=== PATIENT | male | born 1940 | race Caucasian/White ===

== ENCOUNTER 2018-04-17 15:16 | Inpatient (IN) | payer OTHER ==
[~2018-04-17] VITALS: Ht 167.6 cm; Wt 60.0 kg
[2018-04-17 15:24] VITALS: BP_SYST 131
--- NOTE | 2018-04-17 15:27 | NUR ---
Patient triaged and placed in waiting room. VSS and patient appears in no acute distress at this time. Accompanied by self, awaiting available bed, and MD notified of need for MSE.
--- NOTE | 2018-04-17 15:42 | NUR ---
Pt placed in bed 2
--- NOTE | 2018-04-17 16:00 | NUR ---
PT SITTING UP, COMPLAINED OF ABDOMINAL PAIN SINCE YESTERDAY. HE TOOK TYLENOL BUT DID NOT TAKE THE PAIN AWAY COMPLETELY. "I FEEL THE PAIN IS WORSE TODAY, TOWARD MY RIGHT LOWER SIDE, I THINK IT'S MY APPENDIX OR GALLBLADDER."
--- NOTE | 2018-04-17 16:10 | NUR ---
ER at bedside examining patient.
[2018-04-17] MEDS ORDERED: NACL 0.9% 1,000 ML IV ONE (16:38)
[2018-04-17 17:05] LABS: EOSINOPHILS % (AUTO) 0.1 % (0.0-4.0)
[2018-04-17 17:08] LABS: ANION GAP 7 (5-15); CALCIUM 9.1 mg/dL (8.4-11.0); CHLORIDE 95 mmol/L (98-107); CREATININE 0.91 mg/dL (0.55-1.30); GLUCOSE 106 mg/dL (70-99); POTASSIUM 4.2 mmol/L (3.5-5.1); SODIUM SERUM 131 mmol/L (136-145); UREA NITROGEN, BLOOD 15 mg/dL (8-21)
--- NOTE | 2018-04-17 17:10 | NUR ---
# 22 gauge angiocath placed to LEFT A/C. Use of aseptic technique. Opsite placed over site. Blood return noted. Flushed with 10 cc of normal saline. No evidence of infiltration noted. Patient tolerated well.
[2018-04-17 17:11] LABS: INR 1.1 (0.80-1.20); NEUTROPHILS # (AUTO) 11.3 K/uL (1.8-7.7); PROTHROMBIN TIME 11.2 SECS (9.5-12.5); WHITE BLOOD COUNT (AUTO) 14.4 K/uL (4.8-10.8)
[2018-04-17 17:14] LABS: ALANINE AMINOTRANSFERASE 20 U/L (12-78); ALBUMIN 3.4 g/dL (3.4-4.8); AMYLASE 72 U/L (0-100); ASPARTATE AMINOTRANSFERASE 19 U/L (10-37); LIPASE 82 U/L (73-393); TOTAL BILIRUBIN 0.7 mg/dL (0.0-1.0)
--- NOTE | 2018-04-17 17:14 | NUR ---
IVF NS HUNG ORDERED.
[2018-04-17 17:23] LABS: BASOPHILS # (AUTO) 0.2 K/uL (0.0-0.2); BASOPHILS % (AUTO) 1.1 % (0.0-2.0); HEMATOCRIT 39.1 % (36-54); HEMOGLOBIN 13.3 g/dL (14.0-18.0); LYMPHOCYTES # (AUTO) 1.7 K/uL (1.0-5.5); LYMPHOCYTES % (AUTO) 11.7 % (20.5-51.5); MEAN CORPUSCULAR HEMOGLOBIN 31 pg (27-31); MEAN CORPUSCULAR HGB CONC 34 % (32-36); MEAN CORPUSCULAR VOLUME 92 fL (79.0-98.0); MONOCYTES # (AUTO) 1.2 K/uL (0.0-1.0); MONOCYTES % (AUTO) 8.4 % (1.7-9.3); NEUTROPHILS % (AUTO) 78.7 % (40.0-70.0); PLATELET COUNT (AUTO) 216 K/uL (130-430); RED BLOOD CELL COUNT(AUTO) 4.24 MIL/uL (4.2-6.2); RED CELL DISTRIBUTION WIDTH 11.6 % (9.0-15.0)
[2018-04-17 17:38] LABS: BILIRUBIN,URINE NEGATIVE (NEGATIVE); BLOOD, URINE NEGATIVE (NEGATIVE); CLARITY/URINE CLEAR (CLEAR); COLOR,URINE YELLOW (YELLOW); GLUCOSE,URINE NEGATIVE (NEGATIVE); KETONES,URINE NEGATIVE (NEGATIVE); LEUKOCYTE ESTERASE ,URINE NEGATIVE (NEGATIVE); NITRITE, URINE NEGATIVE (NEGATIVE); PH,URINE 6.5 (5.0-8.0); PROTEIN URINE NEGATIVE (NEGATIVE); UROBILINOGEN,URINE 0.2 (0.2-1.0)
--- NOTE | 2018-04-17 18:35 | NUR ---
TAKEN TO CT SCAN DEPT.
[2018-04-17] MEDS ORDERED: IOHEXOL 100 ML IV ONE (18:45)
--- NOTE | 2018-04-17 18:55 | NUR ---
returned to room 2.
--- NOTE | 2018-04-17 19:28 | NUR ---
ASSUMED CARE FROM LUIS ARMANDO PANDA
[2018-04-17] MEDS ORDERED: PIPERACILLIN/TAZO 3.375 GM in NS 50 ML IV ONE (19:30)
[2018-04-17] MEDS ORDERED: MORPHINE 4 MG/ML INJ. SYRINGE IVP ONE (19:30)
[2018-04-17] MEDS ORDERED: PIPERACILLIN/TAZOBACTAM 3.375 GM/VIAL (ZOSYN) IV ONE (19:58)
--- NOTE | 2018-04-17 21:05 | NUR ---
ADMISSION: The patient, SREEDHAR MORRIS, 77 y/o, M admitted by REESE BEVERLY MD, was given written information regarding hospital policies, unit procedures and contact persons. Valuables were checked and .
[2018-04-17 21:10] VITALS: BP_SYST 125
--- NOTE | 2018-04-17 21:10 | NUR ---
OPENING NOTE PT BROUGHT IN FROM ED VIA GURNEY. RECEIVED ENDORSEMENT REPORT FROM ED NURSE ROMERO AT BEDSIDE. PT'S KARIN PRESENT DURING ADMISSION. PT IS AOX4, PT ABLE TO AMBULATE WITH A STEADY GAIT. PT' S CHEST RISE EVEN AND UNLABORED. NO SOB NOTED. NO DISTRESS NOTED. PT DENIES PAIN AT THIS TIME. PT'S IV CLEAN, DRY AND INTACT. PT'S IV ON LEFT AC 22 G, SL. PT ON RA, TOLERATING WELL. PT'S SKIN WARM, DRY AND INTACT. VITAL SIGNS WNL. PT ORIENTED TO HOSPITAL ROOM, PT VERBALIZED UNDERSTANDING. PT INSTRUCTED HOW TO USE CALL LIGHT AND ROOM PHONE, PT VERBALIZED UNDERSTANDING. PT INSTRUCTED TO CALL FOR ASSISTANCE,ALARM, PT EDUCATED ON SAFETY PT REPORTS. SAFETY MEASURES IN PLACE. CALL LIGHT WITHIN REACH, ROOM PHONE WITHIN REACH, BED IN LOWEST POSITION, SIDE RAILS UP X2, BED BRAKES LOCKED, BEDSIDE TABLE WITHIN REACH. NO OTHER NEEDS AT THIS TIME. WILL CONTINUE TO MONITOR PT AND CONTINUE POC.
[2018-04-17 21:17] VITALS: BP_SYST 125
--- NOTE | 2018-04-17 21:35 | NUR ---
DR. BEVERLY AT BEDSIDE
[2018-04-17] MEDS: D5/0.45 NS 1,000 ML IV SCH (21:57)
[2018-04-17] MEDS ORDERED: ONDANSETRON HCL 4 MG/2 ML VIAL IVP PRN (22:00)
--- NOTE | 2018-04-17 22:10 | NUR ---
DR. TOMAS CALLED BACK DR. TOMAS CALLED TO REPORT HE WAS ON HIS WAY, SX SCHEDULED FOR TONIGHT, LAPAROSCOPIC APPENDECTOMY WITH POSSIBLE OPEN APPENDECTOMY. NOTIFIED OF PT'S HX : OPEN HEART SX (2000), A FEW STENTS ACCORDING TO PT IN THE PAST AND ANGIOPLASTY. PT NOT A GOOD HISTORIAN, INFORMED MD PT STATED HOME MEDS INCLUDE METOPROLOL, ZOCOR, PLAVIX AND BABY ASPIRIN. TRANSFERRED TO COMMUNICATIONS CONTROLLER TO NOTIFY OF SX.
--- NOTE | 2018-04-17 22:30 | NUR ---
CONSULTATION PAGED/CALLED Reason for Consultation: CARDIAC CLEARANCE Person Who was Notified: DELMY Consulting Physician: DR. LOGAN Customer Service Technician Specialty: CARDIO Ordering Physician: DR. BEVERLY
--- NOTE | 2018-04-17 22:56 | NUR ---
Paged Dr. Vega dialed [phone], s/w Callie.
--- NOTE | 2018-04-17 23:34 | NUR ---
SX CANCELLED DR. TOMAS ARRIVED ON THE FLOOR AT 2245, MD SPOKE TO PT 2250, CONSENTS SIGNED AT [address] BHAGAT ARRIVED AT 2300 AND UPSET PT WAS NOT PREPARED FOR SX. PT NEEDED CARDIAC CLEARANCE FROM DR. BALDERAS. DR. BALDERAS CALLED THE FLOOR AT 2257 TO INFORM MD TO CALL ID NEEDED. DR. BALDERAS NEVER GAVE CARDIAC CLEARANCE. DR. BHAGAT SPOKE TO PT AT 2301 AND ASSESSED PT, PT INFORMED MD OF HX AND MEDICATIONS. MD INFORMED SX, PT NEEDED CARDIAC CLEARANCE. DR. BHAGAT SPOKE TO DR. BALDERAS AT 2305, SX TO BE CANCELLED AND DR. BALDERAS TO ASSESS PT PRIOR TO SX. DR. BALDERAS AND DR. BEVERLY PAGED AND INFORMED OF SX CANCELLATION.
--- NOTE | 2018-04-17 23:34 | NUR ---
Paged Dr. Patel dialed [phone], s/w Jorden
--- NOTE | 2018-04-17 23:43 | NUR ---
DR. BALDERAS NOTIFIED SX CANCELLED, DR. BALDERAS STATED HE WOULD COME TO SEE PT 04/18/18
--- NOTE | 2018-04-17 23:56 | NUR ---
DR. BEVERLY NOTIFIED SX CANCELLED, WILL VISIT PT 04/18/18, EKG ORDERED, NPO DIET ORDER TO BE CONTINUED, NO OTHER CHANGES
[2018-04-18] MEDS ORDERED: PIPERACILLIN/TAZOBACTAM 3.375 GM/VIAL (ZOSYN) IV ONE (00:05)
--- NOTE | 2018-04-18 02:43 | NUR ---
RN ROUNDS RESTING IN BED WITH EYES OPEN. CHEST RISE EVEN AND UNLABORED. NO SOB NOTED. NO DISTRESS NOTED. PT DENIES PAIN AT THIS TIME. PT'S IV CLEAN, DRY AND INTACT. PT'S IV INFUSING WELL. SAFETY MEASURES IN PLACE. CALL LIGHT WITHIN REACH, ROOM PHONE WITHIN REACH, BED IN LOWEST POSITION, SIDE RAILS UP X2, BED BRAKES LOCKED, BEDSIDE TABLE WITHIN REACH. NO OTHER NEEDS AT THIS TIME. WILL CONTINUE TO MONITOR PT AND CONTINUE POC.
[2018-04-18] MEDS: PIPERACILLIN/TAZO 3.375 GM in NS 50 ML IV SCH ×4 (03:52→20:53)
--- NOTE | 2018-04-18 04:00 | NUR ---
RN ROUNDS PT RESTING IN BED WITH EYES CLOSED. CHEST RISE EVEN AND UNLABORED. NO SOB NOTED. NO DISTRESS NOTED. PT EASILY AWAKEN. PT DENIES PAIN AT THIS TIME. IVF INFUSING WELL. SCHEDULED ZOSYN ADMINISTERED SCHEDULED. NO OTHER NEEDS AT THIS TIME. SAFETY MEASURES IN PLACE. CALL LIGHT WITHIN REACH, ROOM PHONE WITHIN REACH, BED IN LOWEST POSITION, SIDE RAILS UP X2, BED BRAKES LOCKED, BEDSIDE TABLE WITHIN REACH. WILL CONTINUE TO MONITOR PT AND CONTINUE POC.
[2018-04-18] MEDS ORDERED: SIMV10TA2 PO (04:46)
[2018-04-18] MEDS ORDERED: ASA81 PO (04:46)
[2018-04-18] MEDS ORDERED: METO25TA6 PO (04:46)
[2018-04-18] MEDS ORDERED: CLOP300T2 PO (04:46)
[2018-04-18 06:24] LABS: BASOPHILS % (AUTO) 0.4 % (0.0-2.0); EOSINOPHILS % (AUTO) 0.3 % (0.0-4.0); HEMATOCRIT 37.8 % (36-54); HEMOGLOBIN 12.6 g/dL (14.0-18.0); LYMPHOCYTES # (AUTO) 1.7 K/uL (1.0-5.5); LYMPHOCYTES % (AUTO) 15.7 % (20.5-51.5); MEAN CORPUSCULAR HEMOGLOBIN 31 pg (27-31); MEAN CORPUSCULAR HGB CONC 33 % (32-36); MEAN CORPUSCULAR VOLUME 92 fL (79.0-98.0); MONOCYTES # (AUTO) 0.8 K/uL (0.0-1.0); MONOCYTES % (AUTO) 7.1 % (1.7-9.3); NEUTROPHILS # (AUTO) 8.2 K/uL (1.8-7.7); NEUTROPHILS % (AUTO) 76.5 % (40.0-70.0); PLATELET COUNT (AUTO) 217 K/uL (130-430); RED BLOOD CELL COUNT(AUTO) 4.09 MIL/uL (4.2-6.2); WHITE BLOOD COUNT (AUTO) 10.8 K/uL (4.8-10.8)
[2018-04-18] MEDS: PANTOPRAZOLE SODIUM 40 MG/VIAL (PROTONIX) IVP SCH (06:37)
[2018-04-18] MEDS: MORPHINE 4 MG/ML INJ. SYRINGE IVP PRN ×2 (06:48→22:18)
--- NOTE | 2018-04-18 06:54 | NUR ---
RN ROUNDS PT RESTING IN BED WITH EYES OPEN. CHEST RISE EVEN AND UNLABORED. NO SOB NOTED. NO DISTRESS NOTED. IVF INFUSING WELL. PT'S SCHEDULED PROTONIX ADMINISTERED ORDERED. PT TOLERATED WELL. PT REPORTED 7/10 GENERALIZED SHARP PAIN, PRN MORPHINE 4 [facility] IVP ADMINISTERED ORDERED FOR SEVERE PAIN, PT TOLERATED WELL. WILL MONITOR MEDICATION EFFECTIVENESS. SAFETY MEASURES IN PLACE. CALL LIGHT WITHIN REACH, ROOM PHONE WITHIN REACH, BED IN LOWEST POSITION, SIDE RAILS UP X2, BED BRAKES LOCKED, BEDSIDE TABLE WITHIN REACH. NO OTHER NEEDS AT THIS TIME. WILL CONTINUE TO MONITOR PT AND CONTINUE POC.
[2018-04-18 07:03] LABS: ALANINE AMINOTRANSFERASE 21 U/L (12-78); ALBUMIN 3.1 g/dL (3.4-4.8); ANION GAP 8 (5-15); ASPARTATE AMINOTRANSFERASE 15 U/L (10-37); CALCIUM 9.3 mg/dL (8.4-11.0); CHLORIDE 101 mmol/L (98-107); CREATININE 0.99 mg/dL (0.55-1.30); GLUCOSE 113 mg/dL (70-99); POTASSIUM 4.2 mmol/L (3.5-5.1); SODIUM SERUM 138 mmol/L (136-145); TOTAL BILIRUBIN 0.9 mg/dL (0.0-1.0); UREA NITROGEN, BLOOD 12 mg/dL (8-21)
--- NOTE | 2018-04-18 07:40 | NUR ---
CLOSING NOTE ENDORSED PT REPORT TO DAY SHIFT NURSE FLORY AT BEDSIDE. PT RESTING IN BED WITH EYES OPEN. CHEST RISE EVEN AND UNLABORED. NO SOB NOTED. NO DISTRESS NOTED. IVF INFUSING WELL. PT DENIED PAIN AT THIS TIME. ALL SCHEDULED MEDICATIONS ADMINISTERED ORDERED, PT TOLERATED WELL. ALL NEEDS MET THROUGHOUT SHIFT. NO OTHER NEEDS AT THIS TIME. SAFETY MEASURES IN PLACE. WILL CONTINUE TO MONITOR PT AND CONTINUE POC.
[2018-04-18 08:03] VITALS: BP_SYST 125
--- NOTE | 2018-04-18 08:25 | NUR ---
OPENING NOTE: RECEIVED REPORT FROM NIGHT NURSE. PATIENT IS RESTING COMFORTABLY IN BED. NO S/S OF DISTRESS OR SOB. VITAL SIGNS WNL, ASSESSMENT COMPLETE. PATIENT IS ALERT AND ORIENTED, ABLE TO EXPRESS NEEDS, AND ASK FOR ASSISTANCE. IV IS PATENT AND INFUSING. CALL LIGHT IN REACH, BED IN LOWEST POSITION, AND WILL CONTINUE TO MONITOR.
--- NOTE | 2018-04-18 08:31 | NUR ---
GEN SURGEON DR Gregory TOMAS WAS PAGED RE: CLARIFICATION OF NPO ORDERS.
--- NOTE | 2018-04-18 08:34 | NUR ---
DR. TOMAS SPOKE WITH MD REGARDING DIET. PATIENT STATED THAT HE WAS REALLY HUNGRY AND WANTED TO EAT. DR. TOMAS OKAY'D CLEAR LIQUID DIET WITH CAREFUL MONITORING.
--- NOTE | 2018-04-18 10:14 | NUR ---
RN ROUNDS PATIENT IS RESTING COMFORTABLY IN BED. NO S/S OF DISTRESS OR SOB. PATIENT IS ALERT AND ORIENTED. NO NEEDS EXPRESSED AT THIS TIME. CALL LIGHT IN REACH, BED IN LOWEST POSITION, AND WILL CONTINUE TO MONITOR.
[2018-04-18 12:00] VITALS: BP_SYST 118
--- NOTE | 2018-04-18 12:00 | NUR ---
RN ROUNDS PATIENT IS RESTING COMFORTABLY IN BED. NO S/S OF DISTRESS OR SOB. PATIENT IS ALERT AND ORIENTED. FAMILY IS AT BEDSIDE. CALL LIGHT IN REACH, BED IN LOWEST POSITION, AND WILL CONTINUE TO MONITOR.
[2018-04-18] MEDS: D5/0.45 NS 1,000 ML IV SCH (12:18)
--- NOTE | 2018-04-18 14:00 | NUR ---
RN ROUNDS PATIENT IS RESTING COMFORTABLY IN BED. NO S/S OF DISTRESS OR SOB. PATIENT IS AWAKE AND ALERT. FAMILY IS AT BEDSIDE. NO NEEDS EXPRESSED AT THIS TIME. CALL LIGHT IN REACH, BED IN LOWEST POSITION, AND WILL CONTINUE TO MONITOR.
--- NOTE | 2018-04-18 14:01 | NUR ---
CONSULT REASON FOR CONSULT: APPENDICITIS PERSON WHO WAS NOTIFIED: SAMIRA CONSULTING PHYSICIAN: DR. DUNAWAY/ DR BAIRD OCCUPATIONAL WORK EXPERIENCE TEACHER FOR DR. DUNAWAY C.O.D. BILLER PHONE NUMBER: [phone] ORDERING PHYSICIAN: DR. BEVERLY
[2018-04-18] MEDS: metroNIDAZOLE 500 mg/NS 100 ML IV SCH ×2 (15:24→22:15)
--- NOTE | 2018-04-18 16:19 | NUR ---
RN ROUNDS PATIENT IS RESTING COMFORTABLY IN BED. NO S/S OF DISTRESS OR SOB. PATIENT IS ALERT AND ORIENTED. FAMILY IS AT BEDSIDE. NO NEEDS AT THIS TIME. CALL LIGHT IN REACH, BED IN LOWEST POSITION, AND WILL CONTINUE TO MONITOR.
[2018-04-18 16:42] VITALS: BP_SYST 134
--- NOTE | 2018-04-18 18:47 | NUR ---
CLOSING NOTE: PATIENT IS RESTING COMFORTABLY IN BED. NO S/S OF DISTRESS OR SOB. PATIENT IS AWAKE AND ALERT, ABLE TO EXPRESS NEEDS, AND ASK FOR ASSISTANCE. ALL NEEDS MET DURING SHIFT. IV IS PATENT AND INFUSING. CALL LIGHT IN REACH, BED IN LOWEST POSITION, AND WILL GIVE REPORT TO NIGHT NURSE.
--- NOTE | 2018-04-18 19:17 | NUR ---
INITIAL NOTES Received handoff report from offgoing dayshift nurse at the bedside. Patient is awake and alert, resting comfortably in bed. No SOB, no acute distress, no complaints of pain at this time. is at the bedside. Bed is locked, in the lowest position, 2x side rails up. Call light is within reach. Explained plan of care to the patient. Patient verbalized understanding at this time. Will continue with plan of care.
[2018-04-18 20:00] VITALS: BP_SYST 111
--- NOTE | 2018-04-18 22:18 | NUR ---
Patient is complaining of shoulder pain, states he believes it is radiating from his appendix, 01/12. Provided morphine PRN per MD order, see eMAR for details.
--- NOTE | 2018-04-18 23:30 | NUR ---
Patient is resting comfortably in bed with eyes closed. No SOB, no acute distress, no signs of pain or facial grimacing. Breathing is even and unlabored with visible chest rise and fall noted. Bed is locked, in the lowest position, 2x side rails up, bed alarm is on. Call light is within reach.
[2018-04-19 00:12] VITALS: BP_SYST 110
[2018-04-19] MEDS: D5/0.45 NS 1,000 ML IV SCH ×3 (01:12→19:54)
--- NOTE | 2018-04-19 01:15 | NUR ---
Patient is sleeping, resting comfortably in bed, easily aroused by touch. No SOB, no acute distress, no complaints of pain at this time. Call light is within reach. Encouraged patient to call.
[2018-04-19] MEDS: PIPERACILLIN/TAZO 3.375 GM in NS 50 ML IV SCH ×4 (02:16→22:00)
--- NOTE | 2018-04-19 02:22 | NUR ---
Patient is resting comfortably in bed, awake and alert. No SOB, no acute distress, no complaints of pain at this time. IV fluid and IV antibiotics running at the ordered rate, see eMAR for details. Call light within reach. encouraged patient to call for assistance.
--- NOTE | 2018-04-19 03:39 | NUR ---
Patient is resting comfortably in bed with eyes closed. Breathing is even and unlabored with visible chest rise and fall noted. IV site is intact, dressing clean and dry, currently infusing IVF at the ordered rate, see eMAR for details. Bed is locked, in the lowest position, 2x side rails up. Call light within reach.
--- NOTE | 2018-04-19 06:11 | NUR ---
Patient is resting comfortably in bed, sleeping. No SOB, no acute distress, no signs of pain at this time. Call light is within reach.
[2018-04-19] MEDS: metroNIDAZOLE 500 mg/NS 100 ML IV SCH ×2 (06:29→14:14)
[2018-04-19] MEDS: PANTOPRAZOLE SODIUM 40 MG/VIAL (PROTONIX) IVP SCH (06:29)
--- NOTE | 2018-04-19 06:39 | NUR ---
Patient is awake and alert, resting comfortably in bed. No SOB, no acute distress, no complaints of pain at this time. Bed is locked, in the lowest position, 2x side rails up. Patient refuses bed alarm at this time. IV site is intact, dressing clean and dry, currently infusing IVF and IV antibiotics at the ordered rate, see eMAR. Hog Cooler at the bedside to draw labs. Fall and safety precautions maintained. All needs have been met during this shift. Will endorse care to oncoming dayshift nurse.
--- NOTE | 2018-04-19 07:38 | NUR ---
AM ROUNDS: Received patient awake, oriented x4. Denies pain.IV fluid of D5 1/2 NS at 75 cc/hr on the Left AC gauge 20. Call light is within reach. Bed on lowest position.
[2018-04-19 08:00] VITALS: BP_SYST 131
[2018-04-19 08:02] LABS: BASOPHILS # (AUTO) 0.1 K/uL (0.0-0.2); BASOPHILS % (AUTO) 0.7 % (0.0-2.0); EOSINOPHILS % (AUTO) 0.5 % (0.0-4.0); LYMPHOCYTES # (AUTO) 1.9 K/uL (1.0-5.5); LYMPHOCYTES % (AUTO) 19.6 % (20.5-51.5); MEAN CORPUSCULAR HEMOGLOBIN 30 pg (27-31); MONOCYTES # (AUTO) 0.7 K/uL (0.0-1.0); MONOCYTES % (AUTO) 7.6 % (1.7-9.3); NEUTROPHILS # (AUTO) 6.8 K/uL (1.8-7.7); NEUTROPHILS % (AUTO) 71.6 % (40.0-70.0); WHITE BLOOD COUNT (AUTO) 9.5 K/uL (4.8-10.8)
[2018-04-19 08:36] LABS: ANION GAP 9 (5-15); CALCIUM 8.9 mg/dL (8.4-11.0); CHLORIDE 102 mmol/L (98-107); CREATININE 0.92 mg/dL (0.55-1.30); GLUCOSE 117 mg/dL (70-99); POTASSIUM 3.4 mmol/L (3.5-5.1); SODIUM SERUM 139 mmol/L (136-145); UREA NITROGEN, BLOOD 7 mg/dL (8-21)
[2018-04-19 08:37] LABS: ALANINE AMINOTRANSFERASE 21 U/L (12-78); ALBUMIN 2.8 g/dL (3.4-4.8); ASPARTATE AMINOTRANSFERASE 16 U/L (10-37); TOTAL BILIRUBIN 0.5 mg/dL (0.0-1.0)
[2018-04-19 08:50] LABS: HEMATOCRIT 38.6 % (36-54); HEMOGLOBIN 12.3 g/dL (14.0-18.0); MEAN CORPUSCULAR HGB CONC 32 % (32-36); MEAN CORPUSCULAR VOLUME 93 fL (79.0-98.0); PLATELET COUNT (AUTO) 218 K/uL (130-430); RED BLOOD CELL COUNT(AUTO) 4.15 MIL/uL (4.2-6.2); RED CELL DISTRIBUTION WIDTH 11.7 % (9.0-15.0)
--- NOTE | 2018-04-19 11:30 | NUR ---
Rounds: Patient is resting in bed. Denies any abdominal pain.
[2018-04-19 12:00] VITALS: BP_SYST 147
[2018-04-19] MEDS ORDERED: KETOROLAC TROMETHAMINE 15 MG VIAL IVP PRN (12:30)
[2018-04-19] MEDS ORDERED: KETOROLAC TROMETHAMINE 15 MG VIAL ONE (12:41)
[2018-04-19] MEDS ORDERED: DIATR MEGLU/DIATRIZ SOD 30 ML SOLUTION PO ONE (14:09)
--- NOTE | 2018-04-19 14:26 | NUR ---
CT scan. Patient is for CT scan of the abdomen (follow up ) per Dr. Whitehead. Oral contrast administration started by mri ct tech.
[2018-04-19 16:00] VITALS: BP_SYST 144
[2018-04-19] MEDS ORDERED: IOHEXOL 100 ML IV ONE (16:48)
[2018-04-19] MEDS ORDERED: POTASSIUM CHLORIDE 20 MEQ TAB.PRT.SR PO ONE (17:15)
--- NOTE | 2018-04-19 17:57 | NUR ---
CT scan result: Reported to Dr. Whitehead, new order to keep patient NPO now. Patient is aware and verbalized understanding..
--- NOTE | 2018-04-19 19:00 | NUR ---
CLOSING NOTES Patient is laying in bed resting. All needs met throughout shift. No s/s of SOB or distress. No pain reported. Safety and fall precautions maintained throughout shift. IV site intact, patent, dressing is dry. Bed in lowest position, call light within reach.
--- NOTE | 2018-04-19 19:40 | NUR ---
OPENING NOTE Received patient awake AOx4, and lying supine on bed. Patient has 20G to Lt AC, which is patent & intact w/ D5 1/2 NS infusing at 75 ml/hr. Plan of care was reviewed and board was updated. Patient is NPO for surgery on 04-20-18 in am and water /food tray at bedside was removed Bed is low and call light w/in reach.
[2018-04-19 20:00] VITALS: BP_SYST 133
[2018-04-19] MEDS: METOPROLOL TARTRATE 25 MG TABLET PO SCH (21:59)
--- NOTE | 2018-04-19 22:10 | NUR ---
ROUNDS Patient is resting in bed, reports no distress or pain at this time. Administered due medications. Will continue to monitor.
[2018-04-20] MEDS: metroNIDAZOLE 500 mg/NS 100 ML IV SCH ×4 (00:11→23:17)
[2018-04-20] MEDS: PIPERACILLIN/TAZO 3.375 GM in NS 50 ML IV SCH ×4 (02:54→21:01)
--- NOTE | 2018-04-20 03:57 | NUR ---
ROUNDS Patient requested a warm blanket, it was provided. No further needs. Will continue to monitor.
--- NOTE | 2018-04-20 06:00 | NUR ---
ROUNDS Patient is sleeping, resting in bed. Symmetrical rise and fall of chest. No sign of distress. Administered due antibiotic. Needs met.
--- NOTE | 2018-04-20 06:50 | NUR ---
CLOSING NOTE Patient is awake, resting in bed. Administered scheduled Protonix IVP, patient tolerated. No further needs at the moment. Will endorse care to morning nurse.
[2018-04-20] MEDS: PANTOPRAZOLE SODIUM 40 MG/VIAL (PROTONIX) IVP SCH (07:04)
--- NOTE | 2018-04-20 07:55 | NUR ---
AM notes patient received in bed resting, remaining NPO, denies any pain or distress, will update with plan of care, sinus rhythm on monitor, IV fluids infusing well, will continue to monitor, bed in lowest position, call light within reach, bed alarm on, two side rails up, fall and aspiration precautions in place.
[2018-04-20 08:00] VITALS: BP_SYST 133
[2018-04-20] MEDS: METOPROLOL TARTRATE 25 MG TABLET PO SCH ×2 (08:15→21:00)
--- NOTE | 2018-04-20 09:30 | NUR ---
notes pt went to OR at this time. no distress noted. Pt's at bedside, Pt's jewlery Addendum: 04/20/18 at 0959 by Claudine Delarosa RN Pt's jewelry was given to .
[2018-04-20] MEDS ORDERED: BUPIVACAINE /PF 0.5% 30 ML VIAL INJ ONE (10:36)
[2018-04-20] MEDS ORDERED: LIDOCAINE 1% 10 MG/ML, 20 ML MDV INJ ONE (10:36)
[2018-04-20] MEDS ORDERED: ONDANSETRON HCL 4 MG/2 ML VIAL IVP PRN (11:00)
[2018-04-20] MEDS ORDERED: fentaNYL CITRATE/PF 100 MCG/2 ML AMP IVP PRN ×2 (11:00)
[2018-04-20] MEDS ORDERED: HYDROmorphone 1 MG INJ. 1 MG/ML AMPUL IVP PRN (11:15)
[2018-04-20] MEDS ORDERED: PROPOFOL 200MG/ 20ML VIAL (DIPRIVAN) IV ONE (11:25)
[2018-04-20] MEDS ORDERED: ROCURONIUM BROMIDE 10 MG/ML (ZEMURON) ONE (11:25)
[2018-04-20] MEDS ORDERED: NS 1000 ML IV.SOLN IV ONE (11:25)
[2018-04-20] MEDS ORDERED: SEVOFLURANE 15 MIN GAS INH ONE (11:25)
[2018-04-20] MEDS ORDERED: NEOSTIGMINE METHYLSULFATE 1 MG/ML, 10 ML VIAL ONE (11:25)
[2018-04-20] MEDS ORDERED: GLYCOPYRROLATE 0.2 MG/ML VIAL ONE (11:25)
[2018-04-20] MEDS ORDERED: CEFAZOLIN 1 GM IVPB PREMIX 50 ML IV ONE (11:25)
[2018-04-20] MEDS ORDERED: MIDAZOLAM HCL 5 MG/ML VIAL (VERSED) IV ONE (11:25)
[2018-04-20] MEDS ORDERED: fentaNYL CITRATE/PF 100 MCG/2 ML AMP ONE (11:25)
[2018-04-20] MEDS ORDERED: LR 1,000 ML IV.SOLN IV ONE (11:25)
[2018-04-20 12:01] VITALS: BP_SYST 146
[2018-04-20] MEDS: MORPHINE 4 MG/ML INJ. SYRINGE IVP PRN (12:15)
[2018-04-20] MEDS: D5/0.45 NS 1,000 ML IV SCH (12:16)
--- NOTE | 2018-04-20 12:16 | NUR ---
NOTES RECEIVED FROM RECOVERY, S/P LAP APPENDECTOMY WITH X3 INCISION NOTED. PT DROWSY BUT ABLE TO RESPOND AND AROUSABLE. COMPLAIN OF 7/10 PAIN LEVEL. MEDICATED WITH MORPHINE. V/S MONITORING AT THIS TIME. EDUCATE ON PAIN MANAGEMENT AND USE OF INCENTIVE SPIROMETER. CALL LIGHT WITHIN REACH. WILL MONITOR.
--- NOTE | 2018-04-20 13:11 | NUR ---
NOTES IN BED, AWAKE. PAIN IS CONTROLLED. FAMILY AT BEDSIDE. ENCOURAGE ON USE OF INCENTIVE SPIROMETER. TEACH DEEP BREATHING AND COUGHING EXERCISE. HEART RATE RANGING FROM 45-50'S. DENIES ANY CHEST PAIN OR SHORTNESS OF BREATH. WILL CONTINUE TO MONITOR.
--- NOTE | 2018-04-20 14:33 | NUR ---
Notes patient resting in bed, alert and oriented x 4, encouraged to use incentive spirometer, pain is controlled at this time, no signs of distress at this time, will continue to monitor, bed alarm on, two side rails up, bed in lowest position, fall and aspiration precautions in place.
[2018-04-20 15:31] VITALS: BP_SYST 134
--- NOTE | 2018-04-20 16:42 | NUR ---
Notes patient resting in bed, IV infusing well, no signs of pain or distress noted, no signs of bleeding, will continue to monitor, bed in lowest position, bed alarm on, two side rails up, call light within reach, fall and aspiration precautions in place.
--- NOTE | 2018-04-20 17:38 | NUR ---
Voided patient voided 400 ml of urine.
--- NOTE | 2018-04-20 18:38 | NUR ---
Seen by Dr. Ulrich made aware that Dr. Whitehead wants cipro upon discharge, okayed.
--- NOTE | 2018-04-20 18:39 | NUR ---
Closing notes patient resting in bed, patient tolerates clear liquids, denies any nausea or vomiting, pain is controlled, encouraged to ambulate, family at bedside, uses incentive spirometer, no distress noted, all needs met, will endorse report to oncoming nurse, bed in lowest position, bed alarm on, two side rails up, call light within reach, fall and aspiration precautions in place.
--- NOTE | 2018-04-20 19:45 | NUR ---
OPENING NOTE Received patient awake AOx4, and lying supine on bed. Patient has 20G to Lt AC, which is patent & intact. D5 1/2 NS infusing at 75 ml/hr. Plan of care was reviewed and board was updated. Patient had lap appy surgery today. Three incision sites are covered with dressings which are dry and intact. Patient reports discomfort to abdomen that is tolerable and not requesting pain medication. Board was updated and plan of care was reviewed. Bed is low and call light w/in reach.
[2018-04-20 20:00] VITALS: BP_SYST 110
--- NOTE | 2018-04-20 21:30 | NUR ---
AMBULATION Pt ambulated in the hallway, steady gait, pt denies any pain or dizziness. Tolerated well. To monitor.
--- NOTE | 2018-04-20 23:10 | NUR ---
ROUNDS Patient is resting, non-labored breathing. The patient has been voiding, using the urinal throughout the night. His pain to abdomen is tolerable and does not want pain medication. Needs met, will continue to monitor.
[2018-04-20 23:45] VITALS: BP_SYST 121
[2018-04-21 01:06] VITALS: BP_SYST 121
[2018-04-21] MEDS: D5/0.45 NS 1,000 ML IV SCH (02:03)
--- NOTE | 2018-04-21 02:15 | NUR ---
ROUNDS Patient resting and awoken by IV pump alarm. IVF were replaced and set to infuse as ordered. Safety measures in place, bed to lowest position and call light w/in reach.
--- NOTE | 2018-04-21 04:30 | NUR ---
Incentive spirometer Pt awake, encouraged to use I.S. 10x while awake. Pt demonstrated understanding doing 2500 ml. Tolerated well.
[2018-04-21] MEDS: PIPERACILLIN/TAZO 3.375 GM in NS 50 ML IV SCH ×3 (04:35→15:06)
[2018-04-21] MEDS: metroNIDAZOLE 500 mg/NS 100 ML IV SCH ×2 (06:56→13:17)
[2018-04-21] MEDS: PANTOPRAZOLE SODIUM 40 MG/VIAL (PROTONIX) IVP SCH (06:57)
--- NOTE | 2018-04-21 06:58 | NUR ---
CLOSING NOTE Patient is awake and resting in bed. Voided throughout the night. Administered morning medications, IVPB antibiotic and Protonix IVP, as ordered. Patient tolerated. Bed to lowest position and call light w/in reach. Will endorse care to morning nurse.
--- NOTE | 2018-04-21 07:20 | NUR ---
Am Rounds: Patient lying on the bed,awake,alert and oriented x4.Bedside report given by night nurse Angélica/Eryn. Call light with in reach. Bed locked at lowest position. Stable.
[2018-04-21 08:10] VITALS: BP_SYST 143
[2018-04-21] MEDS: METOPROLOL TARTRATE 25 MG TABLET PO SCH (08:48)
--- NOTE | 2018-04-21 09:00 | NUR ---
Rn Rounds: Patient ambulated to the toilet,with steady gait. Voided then back to his bed. Stable.
[2018-04-21 10:30] VITALS: BP_SYST 121
--- NOTE | 2018-04-21 12:07 | NUR ---
rn rounds: family at the bedside. call light with in reach. no problem.
[2018-04-21 12:39] VITALS: BP_SYST 147; BP_SYST 151
--- NOTE | 2018-04-21 14:30 | NUR ---
Rn Rounds: Patient sitting on the chair. Waiting for md to dc patient. Dr prajapati came and informed him with orders from surgeon ,hospitalist to write prescriptions for home antibiotics x 5 days.
[2018-04-21 15:41] VITALS: BP_SYST 121
--- NOTE | 2018-04-21 16:30 | NUR ---
LUIS ARMANDO ROUNDS: RESTING. STABLE. Addendum: 04/21/18 at 2024 by Namita Manning RN WAITING FOR HIS RIDE HOME.
[2018-04-21] MEDS ORDERED: CIPR-211 PO (17:51)
[2018-04-21] MEDS ORDERED: IBUP-1971 PO (17:52)
--- NOTE | 2018-04-21 19:00 | NUR ---
DC NOTES: TRANSITIONAL CARE DOCUMENTS AND PRESCRIPTIONS GIVEN TO PATIENT AND VERBALIZED UNDERSTANDING OF INSTRUCTIONS.REMOVED IV,DRY GAUZE APPLIED,NO BLEEDING NOTED.ACCOMPANIED HOME BY HIS IN STABLE CONDITION.
== END 2018-04-21 19:00 | disposition home or self-care (01) | DRG 342 ==
LOC: SED 15:16 → STU 19:41
PROVIDERS: ADMIT Internal Medicine; ATTEND Family Medicine
PROC: 0DTJ4ZZ Resection of Appendix, Percutaneous Endoscopic Approach (ICD-10-PCS; principal; 2018-04-20 10:00)
DX: K35.80 Unspecified acute appendicitis (principal); E87.1 Hypo-osmolality and hyponatremia; D68.9 Coagulation defect, unspecified; I25.10 Atherosclerotic heart disease of native coronary artery without angina pectoris; E78.5 Hyperlipidemia, unspecified; D64.9 Anemia, unspecified; I10 Essential (primary) hypertension; Z53.9 Procedure and treatment not carried out, unspecified reason; Z85.46 Personal history of malignant neoplasm of prostate; Z87.891 Personal history of nicotine dependence; Z95.1 Presence of aortocoronary bypass graft
CPT/HCPCS: 36415; 71045; 80053; 81003; 82150-TC; 83605; 83690-TC; 85025; 85610-TC; 85730-TC; 87040-TC; 87081; 88304; 93005; 93306; 94010; 94760; 96361; 96365; 96375; 99285; C9113; J0690; J1885; J2001; J2250; J2270; J2543; J2704; J2710; J3010; J3490; J7030; J7042; J7120; Q9964; Q9967

== ENCOUNTER 2018-06-15 08:25 | Outpatient (CLI) | payer BC, OTHER ==
[~2018-06-15 08:25] MED LIST: ASA81 PO; CIPR-211 PO; CLOP300T2 PO; IBUP-1971 PO; METO25TA6 PO; SIMV10TA2 PO
[2018-06-15] MEDS ORDERED: DIATR MEGLU/DIATRIZ SOD 30 ML SOLUTION PO ONE (08:48)
[2018-06-15] MEDS ORDERED: IOHEXOL 100 ML IV ONE (10:32)
== END 2018-06-15 19:29 | disposition home or self-care (01) ==
LOC: SCT 08:25
PROVIDERS: ATTEND Urology
DX: C61 Malignant neoplasm of prostate (principal); I25.10 Atherosclerotic heart disease of native coronary artery without angina pectoris; M41.80 Other forms of scoliosis, site unspecified; M47.899 Other spondylosis, site unspecified
CPT/HCPCS: 71270; 74178; Q9964; Q9967

== ENCOUNTER 2018-06-17 08:45 | Outpatient (CLI) | payer OTHER | END 2018-06-17 19:01 | disposition home or self-care (01) | LOC: SNM 08:45 | PROVIDERS: ATTEND Urology | DX: C61 Malignant neoplasm of prostate (principal) | CPT/HCPCS: 78306; A9503 ==

== ENCOUNTER 2020-05-14 00:20 | Inpatient (IN) | payer OTHER, SELFPAY ==
[~2020-05-14] VITALS: Ht 162.6 cm; Wt 45.4 kg
[2020-05-14] VITALS (14 sets, daily range): BP systolic 85–157
[2020-05-14] MEDS ORDERED: NS 500 ML IV ONE (00:30)
[2020-05-14] MEDS: AZITHROMYCIN 500 MG in NS 250 ML IV ONE ×2 (01:38→02:18)
[2020-05-14] MEDS ORDERED: ASA81 PO (01:46)
[2020-05-14] MEDS ORDERED: VITD2000 PO (01:46)
[2020-05-14] MEDS ORDERED: MAGN250T10 PO (01:56)
[2020-05-14] MEDS ORDERED: GABA-529 PO (01:56)
[2020-05-14] MEDS ORDERED: ZINC50TA69 PO (01:56)
[2020-05-14] MEDS ORDERED: GLUC-241 PO (01:56)
[2020-05-14] MEDS ORDERED: LOSA25TA3 PO (01:56)
[2020-05-14] MEDS ORDERED: DOCU250C14 PO (01:56)
[2020-05-14] MEDS ORDERED: EVOL140P3 (01:56)
[2020-05-14] MEDS ORDERED: DARO300T PO (01:56)
[2020-05-14] MEDS ORDERED: TOPXL100 PO (01:56)
[2020-05-14] MEDS ORDERED: PRO40 PO (01:56)
[2020-05-14] MEDS ORDERED: ROSU20TA2 PO (01:56)
[2020-05-14] MEDS ORDERED: HYDR2TAB4 PO ×2 (01:56)
[2020-05-14] MEDS ORDERED: AZITHROMYCIN 500 MG/VIAL (ZITHROMAX) IV ONE (01:56)
[2020-05-14] MEDS ORDERED: MULT-1198 PO (01:56)
[2020-05-14] MEDS ORDERED: FURO40TA5 PO (01:56)
[2020-05-14] MEDS ORDERED: TRAM50TA2 PO (01:56)
[2020-05-14] MEDS ORDERED: CLOP75TA32 PO (01:56)
[2020-05-14] MEDS ORDERED: FAMO40TA7 PO (01:56)
[2020-05-14] MEDS ORDERED: POLY17PO4 PO (01:56)
[2020-05-14 02:04] LABS: ANION GAP 24 (5-15); CALCIUM 7.4 mg/dL (8.4-11.0); CHLORIDE 90 mmol/L (98-107); CREATININE 2.43 mg/dL (0.55-1.30); GLUCOSE 73 mg/dL (70-99); SODIUM SERUM 125 mmol/L (136-145); UREA NITROGEN, BLOOD 84 mg/dL (8-21)
[2020-05-14 02:09] LABS: INR 2.5 (0.80-1.20)
[2020-05-14 02:11] LABS: HEMATOCRIT 26.9 % (36-54); HEMOGLOBIN 8.7 g/dL (14.0-18.0); MEAN CORPUSCULAR HEMOGLOBIN 29 pg (27-31); MEAN CORPUSCULAR HGB CONC 32 % (32-36); MEAN CORPUSCULAR VOLUME 89 fL (79.0-98.0); RED BLOOD CELL COUNT(AUTO) 3.04 MIL/uL (4.2-6.2); RED CELL DISTRIBUTION WIDTH 17.1 % (9.0-15.0); WHITE BLOOD COUNT (AUTO) 5.9 K/uL (4.8-10.8)
[2020-05-14 02:12] LABS: PLATELET COUNT (AUTO) 11 K/uL (130-430)
[2020-05-14] MEDS ORDERED: CALCIUM GLUCONATE 1 GM in NS 100 ML IV ONE (02:15)
[2020-05-14] MEDS ORDERED: DEXTROSE 50% JECT 50 ML DISP.SYRIN IVP ONE (02:15)
[2020-05-14] MEDS ORDERED: INSULIN REGULAR, HUMAN 10 UNITS/0.1 ML INJ IVP ONE (02:15)
[2020-05-14] MEDS ORDERED: SODIUM BICARBONATE 8.4% JECT 50 MEQ/50 ML SYRINGE IVP ONE ×2 (02:15→15:30)
[2020-05-14] MEDS ORDERED: D5NS 1,000 ML IV ONE (02:15)
[2020-05-14 02:21] LABS: PROTHROMBIN TIME 25.2 SECS (9.5-12.5)
[2020-05-14 02:22] LABS: ALANINE AMINOTRANSFERASE 548 U/L (12-78); ALBUMIN 1.8 g/dL (3.4-4.8); ASPARTATE AMINOTRANSFERASE 1556 U/L (10-37); TOTAL BILIRUBIN 10.8 mg/dL (0.0-1.0)
[2020-05-14 02:24] LABS: POTASSIUM 7.3 mmol/L (3.5-5.1)
[2020-05-14] MEDS ORDERED: metroNIDAZOLE 500 mg/NS 100 ML IV ONE (02:30)
[2020-05-14] MEDS ORDERED: LACTULOSE 20 GM/30 ML UDC PO ONE (02:30)
[2020-05-14 02:35] LABS: BAND % (MANUAL) 15 % (0-6); BASOPHILS % (MANUAL) 0 % (0-2); CORRECTED WHITE BLOOD COUNT 5.6 K/uL (4.5-11.0); EOSINOPHILS % (MANUAL) 0 % (0-7); LYMPHOCYTES % (MANUAL) 27 % (20-46); METAMYELOCYTES % 6 % (0-0); MONOCYTES % (MANUAL) 9 % (0-11)
[2020-05-14] MEDS ORDERED: CALCIUM GLUCONATE 1 GM/10 ML VIAL ONE (02:43)
[2020-05-14] MEDS ORDERED: TRANEXAMIC ACID 1,000 MG/10 ML VIAL IV ONE (03:15)
[2020-05-14] MEDS ORDERED: PHYTONADIONE 10 MG/ML AMP IM ONE (03:15)
[2020-05-14] MEDS ORDERED: DOPamine PREMIX 250 ML IV ONE ×2 (03:15→04:30)
[2020-05-14] MEDS ORDERED: SODIUM ZIRCONIUM CYCLOSILICATE 10 GM POWD.PACK PO ONE (03:15)
[2020-05-14 04:21] LABS: ANION GAP 20 (5-15); CHLORIDE 93 mmol/L (98-107); CREATININE 2.43 mg/dL (0.55-1.30); GLUCOSE 167 mg/dL (70-99); SODIUM SERUM 126 mmol/L (136-145); UREA NITROGEN, BLOOD 85 mg/dL (8-21)
[2020-05-14 04:23] LABS: POTASSIUM 6.7 mmol/L (3.5-5.1)
[2020-05-14] MEDS ORDERED: levalbuterol HCL 0.63 MG/3 ML VIAL.NEB INH PRN (04:30)
[2020-05-14] MEDS: D5/0.45 NS 1,000 ML IV SCH ×2 (05:27→11:26)
[2020-05-14] MEDS ORDERED: PIPERACILLIN/TAZOBACTAM 2.25 GM VIAL IV ONE (05:50)
[2020-05-14] MEDS ORDERED: PIPERACILLIN/TAZO 2.25G/DEX-IS 50 ML IV SCH (06:00)
[2020-05-14] MEDS: levalbuterol HCL 0.63 MG/3 ML VIAL.NEB INH SCH ×3 (06:00→19:15)
[2020-05-14 09:23] LABS: INR 2.6 (0.80-1.20); PROTHROMBIN TIME 26.1 SECS (9.5-12.5)
[2020-05-14 10:08] LABS: ANION GAP 26 (5-15); CHLORIDE 92 mmol/L (98-107); CREATININE 2.56 mg/dL (0.55-1.30); GLUCOSE 154 mg/dL (70-99); SODIUM SERUM 128 mmol/L (136-145); UREA NITROGEN, BLOOD 82 mg/dL (8-21)
[2020-05-14] MEDS: PANTOPRAZOLE SODIUM 40 MG/VIAL (PROTONIX) IVP SCH ×2 (10:10→21:40)
[2020-05-14] MEDS ORDERED: SODIUM POLYSTYRENE SULFONATE 15 GM/60 ML UDBTL PO ONE (12:30)
[2020-05-14] MEDS ORDERED: NALOXONE HCL 0.4 MG/ML AMP (NARCAN) IVP PRN (13:45)
[2020-05-14] MEDS: MORPHINE 2 MG/ML INJ. SYRINGE IVP PRN ×2 (13:47→21:51)
[2020-05-14] MEDS: SODIUM BICARBONATE 8.4% JECT 150 MEQ in D5W 1,000 ML IVP SCH (15:54)
[2020-05-14] MEDS: SODIUM POLYSTYRENE SULFONATE 15 GM/60 ML UDBTL PO ONE ×2 (17:11→17:37)
[2020-05-14 17:29] LABS: ANION GAP 26 (5-15); CHLORIDE 92 mmol/L (98-107); CREATININE 2.64 mg/dL (0.55-1.30); GLUCOSE 116 mg/dL (70-99); SODIUM SERUM 127 mmol/L (136-145); UREA NITROGEN, BLOOD 86 mg/dL (8-21)
[2020-05-14 17:40] LABS: CALCIUM 6.7 mg/dL (8.4-11.0); POTASSIUM 7.2 mmol/L (3.5-5.1)
[2020-05-14] MEDS ORDERED: methylPREDNISolone SOD SUCC/PF 62.5 MG/ML VIAL IVP ONE (18:15)
[2020-05-14] MEDS: SODIUM BICARBONATE 8.4% JECT 50 MEQ/50 ML SYRINGE IVP SCH ×4 (18:41→22:40)
[2020-05-14] MEDS: DOPamine PREMIX 250 ML IV PRN (18:41)
[2020-05-14] MEDS ORDERED: MEROPENEM 500 MG in NS 50 ML IV SCH (21:00)
[2020-05-14] MEDS ORDERED: SODIUM BICARBONATE 8.4% VIAL 50 MEQ/50 ML VIAL ONE (22:54)
[2020-05-15] VITALS (8 sets, daily range): BP systolic 67–154
[2020-05-15] MEDS: SODIUM BICARBONATE 8.4% JECT 150 MEQ in D5W 1,000 ML IVP SCH (00:59)
[2020-05-15] MEDS: levalbuterol HCL 0.63 MG/3 ML VIAL.NEB INH SCH ×2 (01:15→07:15)
[2020-05-15] MEDS: NOREPINEPHRINE BITARTRATE 4 MG in NS 246 ML IV PRN ×2 (02:51→05:05)
[2020-05-15] MEDS ORDERED: NOREPINEPHRINE 4 MG/4 ML VIAL IV ONE ×3 (03:12→08:24)
[2020-05-15] MEDS: MORPHINE 2 MG/ML INJ. SYRINGE IVP PRN (04:21)
[2020-05-15] MEDS ORDERED: methylPREDNISolone SOD SUCC/PF 62.5 MG/ML VIAL IVP SCH (06:00)
[2020-05-15 06:05] LABS: BASOPHILS # (AUTO) 0.1 K/uL (0.0-0.2); BASOPHILS % (AUTO) 1.1 % (0.0-2.0); EOSINOPHILS % (AUTO) 0.4 % (0.0-4.0); HEMATOCRIT 26.5 % (36-54); HEMOGLOBIN 8.6 g/dL (14.0-18.0); LYMPHOCYTES % (AUTO) 18.8 % (20.5-51.5); MEAN CORPUSCULAR HEMOGLOBIN 30 pg (27-31); MEAN CORPUSCULAR HGB CONC 33 % (32-36); MEAN CORPUSCULAR VOLUME 93 fL (79.0-98.0); MONOCYTES # (AUTO) 0.5 K/uL (0.0-1.0); MONOCYTES % (AUTO) 9.6 % (1.7-9.3); NEUTROPHILS # (AUTO) 3.8 K/uL (1.8-7.7); NEUTROPHILS % (AUTO) 70.1 % (40.0-70.0); RED BLOOD CELL COUNT(AUTO) 2.85 MIL/uL (4.2-6.2); RED CELL DISTRIBUTION WIDTH 16.6 % (9.0-15.0); WHITE BLOOD COUNT (AUTO) 5.4 K/uL (4.8-10.8)
[2020-05-15 06:11] LABS: PLATELET COUNT (AUTO) 28 K/uL (130-430)
[2020-05-15] MEDS ORDERED: NOREPINEPHRINE BITARTRATE 16 MG in NS 246 ML IV PRN (08:00)
[2020-05-15] MEDS ORDERED: NOREPINEPHRINE BITARTRATE 16 MG in NS 234 ML IV PRN (08:04)
[2020-05-15 08:13] LABS: INR 2.8 (0.80-1.20)
[2020-05-15] MEDS: DOPamine PREMIX 250 ML IV PRN (08:54)
[2020-05-15] MEDS: PANTOPRAZOLE SODIUM 40 MG/VIAL (PROTONIX) IVP SCH (09:35)
[2020-05-15 09:45] LABS: SODIUM SERUM 130 mmol/L (136-145)
[2020-05-15 09:48] LABS: ANION GAP 28 (5-15); CALCIUM 6.1 mg/dL (8.4-11.0); CHLORIDE 87 mmol/L (98-107); GLUCOSE 151 mg/dL (70-99); POTASSIUM 7.6 mmol/L (3.5-5.1); UREA NITROGEN, BLOOD 87 mg/dL (8-21)
[2020-05-15 09:49] LABS: ALBUMIN 1.5 g/dL (3.4-4.8); CREATININE 3.07 mg/dL (0.55-1.30)
[2020-05-15] MEDS ORDERED: VANCOMYCIN HCL 1 GM/NS PREMIX 250 ML IV ONE (10:00)
[2020-05-15] MEDS ORDERED: FLUCONAZOLE 100 mg/ NS 50 ML IV SCH (10:00)
[2020-05-15 10:06] LABS: PHOSPHORUS 12.9 mg/dL (2.7-4.5)
[2020-05-15 10:07] LABS: ALANINE AMINOTRANSFERASE 2140 U/L (12-78)
[2020-05-15] MEDS ORDERED: CALCIUM GLUCONATE 1 GM in NS 100 ML IV ONE (10:15)
[2020-05-15] MEDS ORDERED: INSULIN REGULAR, HUMAN 100 UNITS/ML, 10 ML VIAL IVP ONE (10:15)
[2020-05-15] MEDS ORDERED: SODIUM BICARBONATE 8.4% JECT 50 MEQ/50 ML SYRINGE IVP ONE ×2 (10:15→11:46)
[2020-05-15] MEDS ORDERED: DEXTROSE 50% JECT 50 ML DISP.SYRIN IVP ONE (10:15)
[2020-05-15] MEDS ORDERED: DEXTROSE 50% JECT 50 ML DISP.SYRIN ONE (10:40)
[2020-05-15 10:55] LABS: ASPARTATE AMINOTRANSFERASE 11904 U/L (10-37)
[2020-05-15] MEDS ORDERED: SODIUM BICARBONATE 8.4% JECT 50 MEQ/50 ML SYRINGE ONE ×2 (11:07→11:15)
[2020-05-15] MEDS ORDERED: EPINEPHrine JECT 0.1 MG/ML SYR IVP ONE (11:46)
[2020-05-15] MEDS ORDERED: CALCIUM CHLORIDE 1 GM/10 ML DISP.SYRIN (14 mEq Ca++/SYR) IVP ONE (11:46)
== END 2020-05-15 11:25 | disposition expired | DRG 871 ==
LOC: SED 00:20 → SIC 04:17
PROVIDERS: ADMIT Family Medicine; ATTEND Family Medicine
PROC: 30233R1 Transfusion of Nonautologous Platelets into Peripheral Vein, Percutaneous Approach (ICD-10-PCS; principal; 2020-05-14)
PROC: 30233N1 Transfusion of Nonautologous Red Blood Cells into Peripheral Vein, Percutaneous Approach (ICD-10-PCS; 2020-05-14)
PROC: 5A09357 Assistance with Respiratory Ventilation, Less than 24 Consecutive Hours, Continuous Positive Airway Pressure (ICD-10-PCS; 2020-05-14)
DX: A41.9 Sepsis, unspecified organism (principal); R65.21 Severe sepsis with septic shock; N17.0 Acute kidney failure with tubular necrosis; J96.01 Acute respiratory failure with hypoxia; G93.41 Metabolic encephalopathy; J18.9 Pneumonia, unspecified organism; E87.2 Acidosis; C79.51 Secondary malignant neoplasm of bone; N39.0 Urinary tract infection, site not specified; D68.9 Coagulation defect, unspecified; D68.4 Acquired coagulation factor deficiency; D84.9 Immunodeficiency, unspecified; C61 Malignant neoplasm of prostate; E78.5 Hyperlipidemia, unspecified; I25.10 Atherosclerotic heart disease of native coronary artery without angina pectoris; E87.5 Hyperkalemia; D64.9 Anemia, unspecified; E86.0 Dehydration; D69.6 Thrombocytopenia, unspecified; Z20.828 Contact with and (suspected) exposure to other viral communicable diseases; K72.90 Hepatic failure, unspecified without coma; I11.0 Hypertensive heart disease with heart failure; I50.9 Heart failure, unspecified; Z79.82 Long term (current) use of aspirin; Z79.899 Other long term (current) drug therapy; Z85.46 Personal history of malignant neoplasm of prostate; Z87.440 Personal history of urinary (tract) infections; Z95.1 Presence of aortocoronary bypass graft
CPT/HCPCS: 36415; 36430; 36600; 71045; 76770; 80048; 80053; 82140-TC; 82803-TC; 82962; 83605; 83735-TC; 83880; 84100-TC; 84484; 85007; 85025; 85027; 85384-TC; 85610-TC; 85730-TC; 86886; 86900; 86901; 86920; 87040-TC; 87081; 93005; 94640; 94660; 96361; 96365; 96367; 96368; 96372; 96375; 99291; C1751; C9113; J0171; J0456; J0610; J1265; J1450; J1815; J2185; J2270; J2543; J2930; J3370; J3430; J3490; J7030; J7042; J7050; J7060; J7614; P9021; P9034